=== PATIENT | female | born 1955 | race Caucasian/White ===

== ENCOUNTER 2016-08-28 10:09 | Outpatient (CLI) | payer BC ==
[~2016-08-28] VITALS: Ht 167.6 cm; Wt 86.3 kg
[2016-08-28 10:30] VITALS: BP 173/96
[2016-08-28 10:48] LABS: BASOPHILS # (AUTO) 0.1 10^3/uL (0.0-0.1); BASOPHILS % (AUTO) 2 % (0-10); EOSINOPHILS # (AUTO) 0.2 10^3/uL (0.0-0.3); EOSINOPHILS % (AUTO) 5 % (0-10); LYMPHOCYTES # (AUTO) 1.3 X 10^3 (1.0-4.0); LYMPHOCYTES % (AUTO) 33 % (12-44); MEAN CORPUSCULAR HEMOGLOBIN 31 PG (25-34); MEAN CORPUSCULAR HGB CONC 34 G/DL (32-36); MEAN CORPUSCULAR VOLUME 90 FL (80-99); MONOCYTES # (AUTO) 0.5 X 10^3 (0.0-1.0); MONOCYTES % (AUTO) 14 % (0-12); NEUTROPHILS # (AUTO) 1.9 X 10^3 (1.8-7.8); NEUTROPHILS % (AUTO) 47 % (42-75); PLATELET COUNT 280 10^3/uL (130-400); RED BLOOD COUNT 4.46 10^6/uL (4.35-5.85); RED CELL DISTRIBUTION WIDTH 12.8 % (10.0-14.5)
[2016-08-28 11:06] LABS: ANION GAP 11 MMOL/L (5-14); BLOOD UREA NITROGEN 15 MG/DL (7-18); BUN/CREATININE RATIO 19; CALCIUM 9.1 MG/DL (8.5-10.1); CARBON DIOXIDE 22 MMOL/L (21-32); CHLORIDE 108 MMOL/L (98-107); CREATININE SERUM 0.81 MG/DL (0.60-1.30); GFR ESTIMATED > 60; GLUCOSE 91 MG/DL (70-105); POTASSIUM 4.1 MMOL/L (3.6-5.0); SODIUM 141 MMOL/L (135-145)
--- NOTE | 2016-08-28 15:48 | Diagnostic Imaging Report ---
INDICATION: Preop for excision of submandibular stone. PA and lateral chest obtained at 11:07 a.m. Heart and mediastinal silhouette are normal in appearance. The lungs are clear. There is no pneumothorax or pleural fluid. IMPRESSION: Negative chest. Dictated by: Dictated on workstation # [id number]
== END 2016-08-28 11:30 | disposition home or self-care (01) ==
LOC: PREOP 10:09
PROVIDERS: ATTEND Otolaryngology Otolaryngology/Facial Plastic Surgery
DX: Z01.810 Encounter for preprocedural cardiovascular examination (principal); Z01.812 Encounter for preprocedural laboratory examination; Z11.2 Encounter for screening for other bacterial diseases; K11.5 Sialolithiasis
CPT/HCPCS: 36415; 71020; 80048; 85025; 87081; 93005

== ENCOUNTER 2016-09-04 06:50 | Day surgery (SDC) | payer BC ==
[~2016-09-04] VITALS: Ht 167.6 cm; Wt 86.3 kg
[2016-09-04] MEDS ORDERED: ONDANSETRON 4 MG/2 ML (SDV) Z0FRAN ONE ×3 (07:13→10:05)
[2016-09-04] MEDS ORDERED: SCOPOLAMINE 1.5 MG (TRANSDERM-SCOP) PATCH ONE (07:13)
[2016-09-04] MEDS ORDERED: FAMOTIDINE 20MG/2ML IV (PEPCID) ONE (07:14)
[2016-09-04] MEDS: LACTATED RINGERS 1,000 ML IV PRN ×2 (07:27→09:40)
[2016-09-04] MEDS ORDERED: FAMOTIDINE 20MG/2ML IV (PEPCID) IV ONE (07:30)
[2016-09-04] MEDS ORDERED: SCOPOLAMINE 1.5 MG (TRANSDERM-SCOP) PATCH TOP ONE (07:30)
[2016-09-04] MEDS ORDERED: ONDANSETRON 4 MG/2 ML (SDV) Z0FRAN IV ONE (07:30)
[2016-09-04 07:33] VITALS: BP 174/92
[2016-09-04] MEDS ORDERED: CLIN300C11 PO (07:36)
[2016-09-04] MEDS ORDERED: LIDOCAINE/EPI 1%-1:100,000 (XYLOCAINE) 20ML ONE (07:52)
[2016-09-04] MEDS ORDERED: MUPIROCIN 2% OINT 22 GM (BACTROBAN) TUBE ONE (07:53)
[2016-09-04] MEDS ORDERED: fentaNYL INJECTION 100 MCG/2 ML AMP ONE ×2 (08:00→09:21)
[2016-09-04] MEDS ORDERED: MIDAZOLAM 2 MG/2 ML (VERSED) VIAL ONE (08:00)
[2016-09-04] MEDS ORDERED: proPOfol 200 MG/20 ML (DIPRIVAN) VIAL IV ONE (08:00)
[2016-09-04] MEDS ORDERED: LIDOCAINE PF 2% 10 ML (XYLOCAINE) AMP ONE (08:06)
[2016-09-04] MEDS ORDERED: DEXAMETHASONE PF 10 MG/ML (DECADRON) VIAL ONE (08:11)
[2016-09-04] MEDS ORDERED: ROCURONIUM 50 MG/5 ML (ZEMURON) VIAL IV ONE (08:11)
[2016-09-04] MEDS ORDERED: LACTATED RINGERS 1,000 ML IV ONE (08:11)
[2016-09-04] MEDS ORDERED: SEVOFLURANE (ULTANE) 15 ML INHAL SOLN ONE ×2 (08:11→10:25)
--- NOTE | 2016-09-04 08:22 | Progress Note-Pre Operative ---
Pre-Operative Progress Note H&P Reviewed The H&P was reviewed, patient examined and no changes noted. Date H&P Reviewed: September 04, 2016 Time H&P Reviewed: 08:10 Pre-Operative Diagnosis: Right Submadibular Sialoadenoitis with duct stone MARISEL PETTIT MD September 04, 2016 8:22 am
[2016-09-04] MEDS ORDERED: PHENYLEPHRINE 100 MCG/ML 10 ML (ANESTHESIA) SYR ONE (08:45)
[2016-09-04] MEDS ORDERED: morphine INJ 10 MG/ML 1ML (SYR OR VIAL) ONE (10:05)
[2016-09-04] MEDS ORDERED: HYDROmorphone (DILAUDID) 2 MG/ML VIAL ONE (10:05)
[2016-09-04] MEDS ORDERED: CLINDAMYCIN 600 MG/4ML (CLEOCIN) VIAL ONE (10:06)
[2016-09-04] MEDS ORDERED: NS (IVPB) 100 ML ONE (10:07)
[2016-09-04] MEDS ORDERED: NEOSTIGMINE (BLOXIVERZ ) 1 MG/1ML 10 ML VIAL ONE (10:24)
[2016-09-04] MEDS ORDERED: GLYCOPYRROLATE 0.2 MG/ML (ROBINUL) 2 ML VIAL ONE (10:24)
[2016-09-04] MEDS ORDERED: CLINDAMYCIN INJECTION 600 MG in NS (IVPB) 50 ML IV ONE (10:30)
--- NOTE | 2016-09-04 10:42 | Progress Note-Post Operative ---
Post-Operative Progess Note Surgeon (s)/W[employer] Area [employer] Systems Administrator (s) Surgeon MARISEL PETTIT MD Wide Area Network Systems Administrator n/a Pre-Operative Diagnosis Right Submadibular Sialoadenoitis with duct stone Post-Operative Diagnosis same Post-Op Procedure Note Date of Procedure: September 04, 2016 Name of Procedure Performed: Excision of Right Submandibular Gland Description & Findings Description and Findings: n/a Anesthesia Type get Estimated Blood Loss 50cc Packing Right Submandibular gland with ductal stone Specimen(s) collected/removed see above MARISEL PETTIT MD September 04, 2016 10:42 am
[2016-09-04] MEDS ORDERED: HYDROcodone/APAP 5 MG/325 MG (LORTAB) TAB PO PRN (10:45)
[2016-09-04] MEDS ORDERED: CLINDAMYCIN 600 MG/50 ML IVPB 50 ML IV ONE (10:45)
[2016-09-04] MEDS ORDERED: fentaNYL INJECTION 100 MCG/2 ML AMP IVP PRN (11:00)
[2016-09-04] MEDS ORDERED: ONDANSETRON 4 MG/2 ML (SDV) Z0FRAN IVP PRN ×2 (11:00→17:00)
[2016-09-04] MEDS ORDERED: HYDROmorphone (DILAUDID) 2 MG/ML VIAL IVP PRN (11:00)
[2016-09-04] MEDS: morphine INJ 10 MG/ML 1ML (SYR OR VIAL) IVP PRN ×2 (11:11→11:20)
[2016-09-04 12:00] VITALS: BP 169/102
[2016-09-04] MEDS: D5 1/2 NS W/KCL 20 MEQ/L 1,000 ML IV SCH (14:00)
[2016-09-04 16:00] VITALS: BP 165/82
--- NOTE | 2016-09-04 16:46 | Progress Note-Standard ---
Standard Progress Note Progress Notes/Assess & Plan Progress/Assessment & Plan ENT-Alfonso Nauseated but otherwise ok tolerate d a malt incision dry flat and intact Drain with mild drainge marginal nerve intact casimiro lgive zofran and see how she does diet as cyril plan on drain out in am and then home Final Diagnosis Right Submandibular Sialoadenitis with stone MARISEL PETTIT MD September 04, 2016 4:46 pm
[2016-09-04 20:00] VITALS: BP 167/83
[2016-09-04] MEDS: ACETAMINOPHEN 325 MG TABLET/CAPLET (TYLENOL) PO PRN (21:23)
[2016-09-05] VITALS: BP 152/87
[2016-09-05] MEDS: D5 1/2 NS W/KCL 20 MEQ/L 1,000 ML IV SCH (02:43)
[2016-09-05] MEDS: ACETAMINOPHEN 325 MG TABLET/CAPLET (TYLENOL) PO PRN (02:43)
[2016-09-05 04:00] VITALS: BP 157/78
--- NOTE | 2016-09-05 06:29 | Progress Note-Standard ---
Standard Progress Note Progress Notes/Assess & Plan Progress/Assessment & Plan ENT-Alfonso Nauseated but otherwise ok tolerate d a malt incision dry flat and intact Drain with mild drainge marginal nerve intact casimiro lgive zofran and see how she does diet as cyril plan on drain out in am and then home ENT-Alfonso-09/05 Doing well nausea gone hirsch improved cyril diet Minimal drainage-drain d/c'ed will discahrge after brekafast patiant has antibiotics to take at [facility] will send pain med precriptin instructions given RTC-1 week for suture removal MARISEL PETTIT MD September 05, 2016 6:29 am
[2016-09-05 07:52] VITALS: BP 158/83
== END 2016-09-05 10:25 | disposition home or self-care (01) ==
LOC: SDC 06:50 → 4TH 11:50 → SDC 09-05 10:25
PROVIDERS: ATTEND Otolaryngology Otolaryngology/Facial Plastic Surgery
DX: K11.5 Sialolithiasis (principal)